=== PATIENT | male | born 1985 | race Caucasian/White ===

== ENCOUNTER 2016-03-05 23:29 | Emergency (ER) | payer OTHER ==
[~2016-03-05] VITALS: Ht 177.8 cm; Wt 97.7 kg
[~2016-03-05 23:29] MED LIST: CETI-263 PO; CHOL500011 PO; FLUT16SP NS; MELA1TAB10 PO; NOMED
[2016-03-05 23:33] VITALS: BP 143/99; PULSE 83; RESP 18; O2SAT 94
--- NOTE | 2016-03-06 00:03 | ED.REPORT ---
HPI-Headache Date of Service Mar 06, 2016 ED Provider: Mode Gomez MD Pt is a 31 y/o male w/ a hx of migraines presenting to the ED c/o migraine headache onset 4 hours ago. The pt has a history of migraine headaches with associated vision changes. He presents today with another episode of a migraine headache with right-sided blurry vision and photophobia. He denies vomiting, focal numbness or weakness, speech changes, fever, chills, neck pain. He had an MRI February 19, 2016 which was relatively unremarkable. 3 doses of Sumatriptan provided no relief and he was told by his neurologist that if 3 doses did not work then his headache would likely not go away on its own. Nursing Notes Stated Complaint: HEADACHE Chief Complaint: Headache Nursing Notes Reviewed: Yes Allergies: Coded Allergies: amoxicillin (Verified Allergy, Mild, NOSE BLEEDING,, 05/31/14) Scheduled Cetirizine HCl (Cetirizine HCl) 10 Mg Tablet 10 MG PO HS Cholecalciferol (Vitamin D3) (Vitamin D3) 5,000 Unit Tablet 5,000 UNIT PO DAILY Fluticasone Propionate (Fluticasone Propionate Nasal) 16 Gm Eagle.susp 2 SPRAY NS BID Melatonin (Melatonin 1 mg Tablet) 1 Each Tablet 1 MG PO HS Miscellaneous Medications No Historical Medication (No Historical Medication) Ea General Time Seen by MD: 23:59 Chief Complaint Migraine headache Hx Obtained From: Patient Arrived By: Walk-in Sudden in Onset?: No Onset Occurred: 1 - 4 hours ago Symptom Duration: Since onset Location: : Generalized Quality: Painful Severity: Current: Moderate Severity: Maximum: Severe Recent Healthcare: Recent doctor visit, Recent testing, Previous diagnosis, Prior workup Similar Sx Previous: Yes Past Medical History Past Medical History Migraine headaches - associated vision changes Past Surgical History none reported Smoking History Never Smoker Social History Alcohol Use: "Social" Drug Use: Denies drug use Ambulatory Status Independent Review of Systems Constitutional: Denies: Chills, Fever Eyes: Reports: Blurred right, Photophobia GI: Denies: Vomiting Musculoskeletal: Denies: Neck pain Neurologic: Reports: Headache, Vision change, Denies: Focal weakness, Numbness, Slurred speech Complete sys rev & neg: except as marked. Physical Exam Initial Vital Signs Vital Signs (First) Date Time Temp Pulse Resp B/P Pulse Ox O2 Delivery O2 Flow Rate FiO2 03/05/16 23:33 36.7 83 18 143/99 94 Room Air Initial VS: Reviewed, Vital signs abnormal ENT: Mucous membranes moist, Conjunctiva normal, No scleral icterus Respiratory: Breath sounds normal, Clear to auscultation, No respiratory distress Cardiovascular: Regular rate & rhythm, Heart sounds normal, Intact distal pulses Abdomen / GI: Soft, Non-tender, No guarding, No rebound, No distention Extremities: Vascular intact, Neuro intact, No swelling, No tenderness Skin: Warm, Dry, No cyanosis Psychiatric: Mood/affect normal, Behavior normal, Normal thought content General/Constitutional: Awake, Alert, No acute distress, Well appearing, Cooperative, Not toxic appearing Head / Eyes: Atraumatic, Normocephalic, PERRL, EOMI, No nystagmus Mild photophobia Neck: Atraumatic, Supple, No meningismus, Full range of motion Neurologic: Oriented X3, Speech NL, No motor deficits, No sensory deficits, CN II - XII intact, Cerebellar NL, Memory NL Interpretation & Diagnostics Lab Results Interpretation Test 03/06/16 01:15 Hold Purple Top Tube Received (Received) Hold Blue Top Tube Received (Received) Hold [place] Top Tube Received (Received) Hold [place] Top Tube Received (Received) Re-Eval/Medical Decision Med Decision/Clinical Course 31-year-old male with his typical migraine headache but not responsive to sumatriptan. He presents with some right-sided visual changes and headache both common for him. He was given ondansetron metoclopramide ketorolac diphenhydramine dexamethasone and saline with good relief of his pain. The visual symptoms resolved completely. He will be discharged home to sleep. He is not driving. Re-Evaluation/Progress : Time of Eval: 01:45 )( Patient Status: Condition resolved, Complete relief, Pain resolved Re-Evaluation/Progress Note: His headache and specifically his vision changes resolved. He is feeling much better. Informed pt of plan for treatment. Pt understands and agrees with plan for treatment. F/U instructions and RTER warnings given. All questions addressed. Counseled Regarding: Diagnosis, Need for follow-up, When/why to return to ED Discharge & Departure Impression: Primary Impression: Migraine Migraine type: with aura Status migrainosus presence: without status migrainosus Intractability: not intractable Qualified Code: G43.109 - Migraine with aura, not intractable, without status migrainosus Disposition: Home Discharge Condition All VS Reviewed: Yes Condition: Stable Patient Instructions: Migraine Headache (ED) Additional Instructions: You were given ondansetron, metoclopramide, ketorolac, diphenhydramine, dexamethasone, and saline with good relief of your pain. Home to sleep. Follow -up with your regular doctor as needed. Referrals: [facility] Scribe Attestation Portions of this note were transcribed by Marvin Walker. I, Dr. Gomez personally performed the history, physical exam and medical decision-making; I reviewed and confirmed the accuracy of the information in the transcribed note. Signed by Edgar Vasquez, 03/05/16 - 0050 Mode Gomez MD Mar 06, 2016 00:03 MARVIN WALKER Mar 06, 2016 00:36
[2016-03-06] MEDS ORDERED: 0.9% Sodium Chloride 1,000 ML IV ONE (00:38)
[2016-03-06] MEDS ORDERED: Dexamethasone 10 mg/mL Inj IVPUSH ONE (00:40)
[2016-03-06] MEDS ORDERED: Ondansetron 2 mg/mL 2 mL Inj IVPUSH ONE (00:40)
[2016-03-06] MEDS ORDERED: MetoCLOpramide 5 mg/mL 2 mL Inj IVPUSH ONE (00:40)
[2016-03-06 02:28] VITALS: BP 120/76; PULSE 83; RESP 16; O2SAT 93
== END 2016-03-06 02:14 | disposition home or self-care (01) ==
LOC: SED 23:29
DX: G43.109 Migraine with aura, not intractable, without status migrainosus (principal); Z88.1 Allergy status to other antibiotic agents
CPT/HCPCS: 96361; 96374; 96375; 99284; J1100; J1200; J2405; J2765; J7030